=== PATIENT | female | born 1970 | race Caucasian/White ===

== ENCOUNTER 2025-03-16 12:43 | Emergency (ER) | payer MEDICARE, MEDICAID ==
[~2025-03-16] VITALS: Ht 170.2 cm; Wt 90.0 kg
[2025-03-16 12:54] VITALS: TEMP 98.2
--- NOTE | 2025-03-16 16:02 | Physician Documentation ---
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 Caregiver reports that he tried going to [facility] urgent Care though they were unable to Medication Reconciliation Allergies: Coded Allergies: No Allergy Information Available (Unverified , 03/16/25) PT DEVELOPMENTALLY DELAYED - STAFF UNSURE OF ALLERGIES Past Medical History Past Medical History: UTI Review of Systems ROS As stated above in the HPI, otherwise all systems are reviewed and negative. Physical Exam Physical Exam Vital Signs: Temperature: 98.2, Source: Temporal, Heart Rate: 102, Respiratory Rate: 16, BP: 117/83, Pulse Oximetry: 99, Weight: 90.000 Oxygen Flow Rate: 0 Physical Exam VITALS: Reviewed and as above. GENERAL: Alert, nontoxic appearing, no apparent distress. RESPIRATORY: No increased work of breathing, no respiratory distress, speaking in full clear sentences Progress Results/Orders Results/Orders Vital Signs 03/16/25 03/16/25 12:54 16:52 Temp 98.2 Pulse 102 95 Resp 16 18 B/P (MAP) 117/83 119/91 Pulse Ox 99 97 O2 Flow Rate 0 Medical Decision Making Findings This otherwise well-appearing 54-year-old female with history of developmental delay was brought in by caregiver at her care facility requesting a test for E coli to prove that she had a longer an infection infection, patient has a indwelling urinary catheter though caregiver was unsure why. Of of note mateo reese reported that he had attempted to go to an urgent care for the same concern and when they were unable to accommodate his request he came to the emergency department. Patient reported no symptoms and feeling otherwise well and also did not know why she had a urinary catheter. I discussed with caregiver that we would be unable to facilitate his request for any coli test as this type of test would require culture in the urine and that patient's primary care provider would media appropriate source of this test in addition to having better context is why the test as needed, though patient's caregiver was offered the option to have the patient leave a urine sample to be tested for current UTI and if indicated a culture would be performed. Patient is well-appearing with stable vital signs and benign exam and is appropriate for outpatient follow up. Differential Diagnosis Urinary retention, urinary tract infection, pyelonephritis, multidrug resistant organism Departure Time of Disposition: 16:03 Disposition: 01 HOME / SELF CARE / HOMELESS Impression: Primary Impression: General medical exam Condition: Improved Additional Instructions: Unfortunately we are unable to assist you with your request for an E coli test this is a test best performed by primary care provider as it takes several days for culture to grow out and they are best for follow up. It is reassuring she is not symptomatic. Please follow up with your primary care provider in the next few days. Please return to the emergency department for any new or worsening concerning symptoms. Referrals: NO PRIMARY CARE PROVIDER (PCP) Education Educated: Patient, Other (Caregiver) Educated regarding: diagnosis, treatment, prognosis, need for follow up Signature Scribe Signature: No scribe Attestation: The note accurately reflects work and decisions made by me.RADHA Schafer 03/16/25 22:31 JOSE CLEARY March 16, 2025 16:02
[2025-03-16 16:52] VITALS: BP 119/91; PULSE 95; RESP 18; O2SAT 97
== END 2025-03-16 16:53 | disposition home or self-care (01) ==
LOC: ER 12:45
DX: Z00.8 Encounter for other general examination (principal)
CPT/HCPCS: 99281